=== PATIENT | male | born 1965 | race Caucasian/White ===

== ENCOUNTER 2019-01-03 23:09 | Emergency (ER) | payer BC ==
[~2019-01-03] VITALS: Ht 175.3 cm; Wt 76.7 kg
[2019-01-03 23:15] VITALS: BP 145/89
[2019-01-03 23:34] LABS: BILIRUBIN,URINE NEGATIVE (NEG); CLARITY,URINE CLEAR; COLOR,URINE YELLOW; NITRITE,URINE NEGATIVE (NEG); PROTEIN,URINE NEGATIVE (NEG-TRACE); UROBILINOGEN,URINE 0.2 mg/dL (0.2 mg/dL)
[2019-01-03 23:40] LABS: BACTERIA,URINE MANY /HPF (0-FEW); WBC,URINE TNTC /HPF (0-4)
[2019-01-03 23:41] LABS: HYALINE CASTS, URINE FEW /HPF; SQUAMOUS EPITHELIAL CELL,UR OCC /LPF
[2019-01-03] MEDS ORDERED: CEPH-264 PO (23:58)
[2019-01-03] MEDS ORDERED: PHEN-318 PO (23:58)
--- NOTE | 2019-01-03 23:58 | PHYS DOC ---
Past Medical History Past Medical History: No Pertinent History Past Surgical History: No Surgical History Additional Information: Nonsmoker Alcohol Use: Occasionally Drug Use: Marijuana Adult General Chief Complaint Chief Complaint: URINARY FREQUENCY HPI HPI 53-year-old male presents with report of 6 day history of increased urinary frequency and urgency. Reports worse tonight. Denies fever or chills. Denies rash. Denies concern for STD exposure. Review of Systems Review of Systems Constitutional: Denies fever or chills Eyes: Denies redness or eye pain HENT: Denies nasal congestion or sore throat Respiratory: Denies cough or shortness of breath Cardiovascular: Denies chest pain or palpitations GI: Denies abdominal pain, nausea, or vomiting : Reports increased urinary frequency and urgency Musculoskeletal: Denies back pain or joint pain Integument: Denies rash or skin lesions Neurologic: Denies headache, focal weakness or sensory changes Complete systems were reviewed and found to be within normal limits, except as documented in this note. Current Medications Current Medications Current Medications Medications (Trade) Dose Ordered Sig/Irma Start Time Stop Time Status Last Admin Dose Admin Cephalexin HCl (Keflex) 500 mg 1X ONCE 01/04/19 00:00 01/04/19 00:01 DC 01/04/19 00:07 500 MG Phenazopyridine HCl (Pyridium) 200 mg 1X ONCE 01/04/19 00:00 01/04/19 00:01 DC 01/04/19 00:08 200 MG Allergies Allergies Allergies Coded Allergies Type Severity Reaction Last Updated Verified No Known Drug Allergies 04/23/13 No Physical Exam Physical Exam Constitutional: Well developed, well nourished, no acute distress, non-toxic appearance HENT: Normocephalic, atraumatic, oropharynx moist Eyes: Conjunctiva normal, no discharge Neck: Normal range of motion, no tenderness, supple Cardiovascular: Heart rate normal, regular rhythm Lungs & Thorax: Bilateral breath sounds clear to auscultation, no wheezing Abdomen: Soft, no tenderness Skin: Warm, dry, no erythema, no rash Back: No tenderness, no CVA tenderness Extremities: No tenderness, ROM intact, no edema Neurologic: Alert and oriented X 3, no focal deficits noted Psychologic: Affect normal, judgement normal Current Patient Data Vital Signs Vital Signs Date Time Temp Pulse Resp B/P (MAP) Pulse Ox O2 Delivery O2 Flow Rate FiO2 01/03/19 23:15 98.4 88 16 145/89 (107) 99 Room Air 98.4 Lab Values Laboratory Tests Test 01/03/19 23:18 Urine Collection Type Unknown Urine Color Yellow Urine Clarity Clear Urine pH 7.0 Urine Specific [place] 1.020 Urine Protein Negative mg/dL (NEG-TRACE) Urine Glucose (UA) Negative mg/dL (NEG) Urine Ketones (Stick) Negative mg/dL (NEG) Urine Blood Moderate (NEG) Urine Nitrite Negative (NEG) Urine Bilirubin Negative (NEG) Urine Urobilinogen Dipstick 0.2 mg/dL (0.2 mg/dL) Urine Leukocyte Esterase Moderate (NEG) Urine RBC 11-20 /HPF (0-2) Urine WBC Tntc /HPF (0-4) Urine Squamous Epithelial Cells Occ /LPF Urine Bacteria Many /HPF (0-FEW) Urine Hyaline Casts Few /HPF Urine Mucus Mod /LPF EKG EKG [] Radiology/Procedures Radiology/Procedures [] Course & Med Decision Making Course & Med Decision Making Pertinent Lab studies reviewed. (See chart for details) Patient presents with history of present illness and physical exam concerning for urine tract infection. UA confirmed signs of infection. Symptomatic treatment provided- Pyridium. Empiric antibiotic initiated. Patient stable for discharge with outpatient follow-up with PCP/Urology. Urology referral provided. Discussed findings and plan with patient, who acknowledges understanding and agreement. Dragon Disclaimer Dragon Disclaimer This electronic medical record was generated, in whole or in part, using a voice recognition dictation system. Departure Departure Impression: Primary Impression: UTI (urinary tract infection) Disposition: HOME, SELF-CARE Condition: STABLE Referrals: NO PCP (PCP) MIKEY ZAMBRANO MD Patient Instructions: Urinary Tract Infection, [id number] Scripts Cephalexin (KEFLEX) 500 Mg Capsule 500 MG PO TID for 7 Days, #21 CAP Prov: TONI COREAS DO 01/03/19 Phenazopyridine Hcl (PYRIDIUM) 200 Mg Tablet 200 MG PO TID PRN for DYSURIA for 2 Days, #5 TAB Prov: TONI COREAS DO 01/03/19 Problem Qualifiers Primary Impression: UTI (urinary tract infection) Urinary tract infection type: acute cystitis Hematuria presence: with hematuria Qualified Codes: N30.01 - Acute cystitis with hematuria TONI COREAS DO Jan 03, 2019 23:58
[2019-01-04] MEDS ORDERED: CEPHALEXIN 250 MG CAPSULE. PO ONE
[2019-01-04] MEDS ORDERED: PHENAZOPYRIDINE 200 MG TABLET. PO ONE
== END 2019-01-04 00:12 | disposition home or self-care (01) ==
LOC: ER 23:09
DX: N30.01 Acute cystitis with hematuria (principal)
CPT/HCPCS: 81001; 87086; 99284

== ENCOUNTER 2019-02-23 11:33 | Emergency (ER) | payer BC ==
[~2019-02-23] VITALS: Ht 175.3 cm; Wt 76.7 kg
[~2019-02-23 11:33] MED LIST: CEPH-264 PO; PHEN-318 PO
[2019-02-23 11:55] VITALS: BP 138/76
[2019-02-23] MEDS ORDERED: KETOROLAC TROMETHAMINE 10 MG TABLET PO STA (11:57)
--- NOTE | 2019-02-23 12:04 | PHYS DOC ---
Past Medical History Past Medical History: No Pertinent History Past Surgical History: No Surgical History Alcohol Use: Occasionally Drug Use: Marijuana Adult General Chief Complaint Chief Complaint: UPPER EXTREMITY INJURY HPI HPI Patient is a 54 year old male who presents with left shoulder pain after unloading boxes from a truck last Friday. The patient states his left shoulder is been hurting since that time. He rates the pain as 7 out of 10 severity sharp. Review of Systems Review of Systems Constitutional: Denies fever or chills [] Eyes: Denies change in visual acuity, redness, or eye pain [] HENT: Denies nasal congestion or sore throat [] Respiratory: Denies cough or shortness of breath [] Cardiovascular: No additional information not addressed in HPI [] GI: Denies abdominal pain, nausea, vomiting, bloody stools or diarrhea [] : Denies dysuria or hematuria [] Musculoskeletal: Reports L shoulder pain Integument: Denies rash or skin lesions [] Neurologic: Denies headache, focal weakness or sensory changes [] Endocrine: Denies polyuria or polydipsia [] Complete systems were reviewed and found to be within normal limits, except as documented in this note. Current Medications Current Medications Current Medications Medications (Trade) Dose Ordered Sig/Irma Start Time Stop Time Status Last Admin Dose Admin Ketorolac Tromethamine (Toradol) 10 mg 1X STAT 02/23/19 11:57 02/23/19 12:00 DC 02/23/19 12:05 10 MG Allergies Allergies Allergies Coded Allergies Type Severity Reaction Last Updated Verified No Known Drug Allergies 04/23/13 No Physical Exam Physical Exam Constitutional: Well developed, well nourished, no acute distress, non-toxic appearance. [] HENT: Normocephalic, atraumatic, bilateral external ears normal, oropharynx moist, no oral exudates, nose normal. [] Eyes: PERRLA, EOMI, conjunctiva normal, no discharge. [] Neck: Normal range of motion, no tenderness, supple, no stridor. [] Skin: Warm, dry, no erythema, no rash. [] Back: No tenderness, no CVA tenderness. [] Extremities: Tenderness to L shoulder, - drop arm test, reduced range of motion, unable to lift arm above shoulder. Neurologic: Alert and oriented X 3, normal motor function, normal sensory function, no focal deficits noted. [] Psychologic: Affect normal, judgement normal, mood normal. [] Current Patient Data Vital Signs Vital Signs Date Time Temp Pulse Resp B/P (MAP) Pulse Ox O2 Delivery O2 Flow Rate FiO2 02/23/19 11:55 98.0 104 18 138/76 (96) 97 Room Air 98.0 EKG EKG [] Radiology/Procedures Radiology/Procedures [][facility] [address] [place] [address] IMAGING REPORT Signed PATIENT: JODI ENGEL ACCOUNT: [id number] : 1965 LOCATION: ER AGE: 54 SEX: M EXAM STATUS: REG ER ORD. PHYSICIAN: TONI LANE APRN REASON: L shoulder pain after lifting heavy boxes PROCEDURE: SHOULDER 2+V LEFT Study: SHOULDER 2+V LEFT Indication: Left shoulder pain after lifting heavy boxes. Comparison: None. Findings: No acute fracture or traumatic malalignment at the shoulder girdle. No significant degenerative changes. Ovoid focus of mineralization within the mid left lung most compatible with a granuloma. Impression: No acute fracture or malalignment at the left shoulder. Electronically signed by: RACHAEL KEATING MD (02/23/2019 12:43 PM) [facility] DICTATED and SIGNED BY: RACHAEL KEATING MD DATE: 02/23/19 1243 Course & Med Decision Making Course & Med Decision Making Pertinent Labs and Imaging studies reviewed. (See chart for details) Will get x-ray and give Toradol. X-ray is unremarkable. Will place in shoulder sling and have follow up for more testing. Dragon Disclaimer Dragon Disclaimer This electronic medical record was generated, in whole or in part, using a voice recognition dictation system. Departure Departure Impression: Primary Impression: Shoulder pain, left Disposition: 01 HOME, SELF-CARE Condition: STABLE Referrals: NO PCP (PCP) Patient Instructions: Shoulder Pain Additional Instructions: Thank you for visiting [facility]. We appreciate you trusting us with your care. If any additional problems come up don't hesitate to return to visit us. Please follow up with your primary care provider so they can plan additional care if needed and know about the problem that you had. If symptoms worsen come back to the Emergency Department. Any concerning symptoms that start such as chest pain, shortness of air, weakness or numbness on one side of the body, running high fevers or any other concerning symptoms return to the ER. Please fill your medications at any pharmacy and follow the prescription instructions. Please follow up with your PCP for further testing. Scripts Naproxen (NAPROXEN) 500 Mg Tablet.dr 1 TAB PO BID PRN for PAIN for 14 Days, #28 TAB Prov: TONI LANE APRN 02/23/19 Problem Qualifiers Primary Impression: Shoulder pain, left Chronicity: acute Qualified Codes: M25.512 - Pain in left shoulder TONI LANE APRN Feb 23, 2019 12:04
--- NOTE | 2019-02-23 12:45 | RAD ---
Study: SHOULDER 2+V LEFT Indication: Left shoulder pain after lifting heavy boxes. Comparison: None. Findings: No acute fracture or traumatic malalignment at the shoulder girdle. No significant degenerative changes. Ovoid focus of mineralization within the mid left lung most compatible with a granuloma. Impression: No acute fracture or malalignment at the left shoulder. Electronically signed by: RACHAEL KEATING MD (02/23/2019 12:43 PM) [facility]
[2019-02-23] MEDS ORDERED: NAPR500T8 PO (12:55)
== END 2019-02-23 13:06 | disposition home or self-care (01) ==
LOC: ER 11:33
DX: M25.512 Pain in left shoulder (principal); X50.9XXA Other and unspecified overexertion or strenuous movements or postures, initial encounter; Y93.89 Activity, other specified; Y92.89 Other specified places as the place of occurrence of the external cause; Y99.8 Other external cause status
CPT/HCPCS: 73030; 99284

== ENCOUNTER 2019-05-26 16:52 | Emergency (ER) | payer SELFPAY ==
[~2019-05-26] VITALS: Ht 175.3 cm; Wt 80.0 kg
[~2019-05-26 16:52] MED LIST changes: +NAPR500T8 PO
[2019-05-26] MEDS ORDERED: fentaNYL PF VIAL 100 MCG/2 ML VIAL IV ONE ×2 (17:15→19:00)
[2019-05-26] MEDS ORDERED: IV NORMAL SALINE 1000ML BAG 1,000 ML IV ONE (17:15)
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
[2019-05-26 17:37] LABS: BASO # 0.1 x10^3/uL (0.0-0.2); BASO % 1 % (0-3); EOS # 0.3 x10^3/uL (0.0-0.7); EOS % 5 % (0-3); HEMATOCRIT 40.3 % (39.0-53.0); HEMOGLOBIN 13.9 g/dL (13.0-17.5); LYMPH # 1.8 x10^3/uL (1.0-4.8); LYMPH % 26 % (24-48); MEAN CORPUSCULAR HEMOGLOBIN 31 pg (25-35); MEAN CORPUSCULAR HGB CONC 35 g/dL (31-37); MEAN CORPUSCULAR VOLUME 91 fL (79-100); MONO # 0.6 x10^3/uL (0.0-1.1); MONO % 8 % (0-9); NEUT # 4.1 x10^3/uL (1.8-7.7); NEUT % 60 % (31-73); PLATELET COUNT 210 x10^3/uL (140-400); RED BLOOD COUNT 4.44 x10^6/uL (4.30-5.70); RED CELL DISTRIBUTION WIDTH 13.8 % (11.5-14.5); WHITE BLOOD COUNT 6.9 x10^3/uL (4.0-11.0)
[2019-05-26 17:50] LABS: CREATININE 1.1 mg/dL (0.7-1.3); GFR 69.5; POTASSIUM 3.7 mmol/L (3.5-5.1)
[2019-05-26 17:55] LABS: ALBUMIN 3.5 g/dL (3.4-5.0); ALBUMIN/GLOBULIN RATIO 1.2 (1.0-1.7); TOTAL BILIRUBIN 0.5 mg/dL (0.2-1.0); TOTAL PROTEIN 6.5 g/dL (6.4-8.2)
[2019-05-26] MEDS ORDERED: IOHEXOL 300 MG/ML 100ML VIAL. IV ONE (18:15)
[2019-05-26] MEDS ORDERED: CONTRAST GIVEN. MC PRN (18:15)
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
[2019-05-26] MEDS ORDERED: ORPH100T PO (19:17)
[2019-05-26] MEDS ORDERED: IBUP-1027 PO (19:17)
[2019-05-26] MEDS ORDERED: DIPHTH,PERTUSS(ACELL),TET TOX 0.5 ML DISP.SYRIN. VAX IM ONE (19:30)
[2019-05-26] MEDS ORDERED: ORPHENADRINE CITRATE 60 MG/2 ML VIAL. IV ONE (19:30)
[2019-05-26 19:49] LABS: BILIRUBIN,URINE NEGATIVE (NEG); CLARITY,URINE CLOUDY; COLOR,URINE YELLOW; NITRITE,URINE NEGATIVE (NEG); PROTEIN,URINE NEGATIVE (NEG-TRACE); UROBILINOGEN,URINE 0.2 mg/dL (0.2 mg/dL)
[2019-05-26 19:56] VITALS: BP 128/78
[2019-05-26 20:01] LABS: BACTERIA,URINE 0 /HPF (0-FEW); HYALINE CASTS, URINE FEW /HPF; WBC,URINE OCC /HPF (0-4)
[2019-05-26] MEDS ORDERED: METH4TAB2 PO (20:30)
[2019-05-26] MEDS ORDERED: HYDR-3164 PO (20:30)
--- NOTE | 2019-05-27 05:16 | EKG ---
[facility] [address] [place] [address] Test Date: 2019-05-26 Test Time: 17:32:08 Pat Name: JODI ENGEL Department: Room: Gender: M [employer]: : 1965 Requested By: TONI LANE Order Number: [id number] Reading MD: Measurements Intervals [place] Rate: 72 P: 28 DE: 128 QRS: 45 QRSD: 86 T: 24 QT: 374 QTc: 415 Interpretive Statements SINUS RHYTHM NORMAL ECG No previous ECG available for comparison
== END 2019-05-26 20:39 | disposition home or self-care (01) ==
LOC: ER 16:52
DX: M54.2 Cervicalgia (principal); M25.552 Pain in left hip; R10.9 Unspecified abdominal pain; G89.11 Acute pain due to trauma; F12.90 Cannabis use, unspecified, uncomplicated; V89.2XXA Person injured in unspecified motor-vehicle accident, traffic, initial encounter; Y93.89 Activity, other specified; Y92.413 State road as the place of occurrence of the external cause; Y99.8 Other external cause status
CPT/HCPCS: 36415; 70450; 71260; 72125; 73502; 74177; 80053; 81001; 84484; 85025; 85610; 85730; 90471; 90715; 93005; 96374; 96375; 96376; 99285; J2360; J3010; J7030; Q9967

== ENCOUNTER → 2020-08-15 | Outpatient (CLI) | payer MEDICAID ==
[~2020-08-15] MED LIST changes: +HYDR-3164 PO; +IBUP-1027 PO; +METH4TAB2 PO; +ORPH100T PO
--- NOTE | 2020-08-15 09:21 | KCIC ---
EXAM: Lower extremity arterial Doppler sonogram with ankle-brachial indices (MELITA). HISTORY: Spinal stenosis. Left lower extremity pain. Atherosclerosis. Peripheral vascular disease. TECHNIQUE: Doppler sonographic evaluation of the lower extremities was performed and pressure reading s were assessed. FINDINGS: Right brachial pressure: 113 mmHg Left brachial pressure: 04/09/2017 mmHg Right ankle pressure (dorsalis pedis artery): 135 mmHg Right ankle pressure (posterior tibial artery): 134 mmHg Right MELITA: 1.1 Left ankle pressure (dorsalis pedis artery): 139 mmHg Left ankle pressure (posterior tibial artery): 135 mmHg Left MELITA: 1.2 There is a borderline elevated peak systolic velocity within the left common femoral artery, measurin g 152 cm/s. There are normal peak systolic velocities within the remainder of the left lower cavity a rteries. There is minimal atherosclerotic plaque within the visualized left lower extremity arteries. IMPRESSION: 1. Normal bilateral ankle-brachial indices. 2. Borderline elevated peak systolic velocity within the left common femoral artery, suggesting mild stenosis. No severe stenosis or arterial occlusion is seen. Electronically signed by: Dora Gaffney MD (08/15/2020 9:18 AM) [id number]
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
== END ==
LOC: KCIC US 08:12
PROVIDERS: ATTEND Family Medicine
DX: M47.817 Spondylosis without myelopathy or radiculopathy, lumbosacral region (principal); M48.062 Spinal stenosis, lumbar region with neurogenic claudication
CPT/HCPCS: 72148; 93922; 93926

== ENCOUNTER → 2021-02-28 | Outpatient (CLI) | payer MEDICAID ==
--- NOTE | 2021-03-01 13:12 | SLEEP ---
DATE OF STUDY: 02/28/2021 HOME SLEEP STUDY ATTENDING PHYSICIAN: Cecil Spencer MD The patient is 56 years old who weighs 172 pounds with a BMI of 25.4. The patient's [place] score was 13. The patient underwent home sleep study performed by [facility]. Total recording time was 547 minutes. During the night study, the patient had 15 obstructive apneas, 26 central apneas, 70 mixed apneas and 20 hypopneas. The patient's AHI was 25.5 per hour. Nocturnal oximetry study revealed an average oxygen saturation of 95% with lowest of 82%. Only 0.5 minutes were spent with oxygen saturation less than 90%. Mean heart rate 54 beats per minute. IMPRESSION: 1. Moderate obstructive sleep apnea at an apnea-hypopnea index of 25.5 per hour. 2. No clinically significant nocturnal hypoxia. RECOMMENDATIONS: 1. The patient would benefit from treatment of sleep apnea with CPAP. This can be done as an in-lab versus home auto-PAP. 2. Once the patient is optimally treated with CPAP, then follow up in 4-6 weeks to assess compliance and to document clinical improvement. 3. Avoid [employer] depressants. 4. Cautioned regarding driving until symptoms of sleep apnea resolve with CPAP. ELISA DR: Black TID: [id number] CC: Idalia SPENCER MD
== END ==
LOC: RT 10:57
PROVIDERS: ATTEND Family Medicine
DX: G47.33 Obstructive sleep apnea (adult) (pediatric) (principal); R40.0 Somnolence
CPT/HCPCS: G0399

== ENCOUNTER → 2021-03-22 | Outpatient (CLI) | payer MEDICAID ==
--- NOTE | 2021-03-26 20:29 | SLEEP ---
DATE OF STUDY: 03/22/2021 SLEEP STUDY ATTENDING PHYSICIAN: Luis Felipe Acevedo MD The patient is 56 years old, who weighs 164 pounds with a BMI of 24.4. The patient had a previous home sleep study and was found to have moderate obstructive sleep apnea at an AHI of 25 per hour. The patient returned for CPAP titration study performed at [facility]. During the night study, the patient spent 430 minutes in bed and slept for 219 minutes with a sleep efficiency of 68%. Sleep latency was 2 minutes with a REM latency of 108 minutes. Sleep architecture showed normal stage 1 sleep, increased stage 2 sleep, absent slow wave and reduced REM sleep. The patient was started on CPAP at 5 cm water and titrated up to 7 cm water. The patient had an anxiety attack towards the end of the night and the test was stopped at patient request. However, the patient did reasonably well while on 5 cm as well as 7 cm of CPAP. At 7 cm of CPAP, the patient slept for 92 minutes. The patient had supine sleep but no REM sleep. The patient's AHI was reduced to 0 per hour and oxygen saturations remained above 94%. EKG monitoring revealed an average heart rate of 53 beats per minute. No sustained arrhythmias observed. No significant periodic limb movements seen. IMPRESSION: 1. Moderate obstructive sleep apnea diagnosed by previous home sleep study. 2. No significant periodic limb movements. RECOMMENDATIONS: 1. Even though the patient could not finish CPAP titration study towards the end of the night, the patient did well at 7 cm of CPAP. This pressure should be used on a nightly basis. 2. Follow up in 4-6 weeks to assess compliance and to document clinical improvement. 3. Avoid [employer] depressants. 4. Cautioned regarding driving until symptoms of sleep apnea resolve with the use of CPAP. HALI/ERENDIRA/MIREYA DR: Black TID: [id number] CC: Luis Felipe Acevedo MD [facility]
== END ==
LOC: RT 18:56
PROVIDERS: ATTEND Family Medicine
DX: G47.33 Obstructive sleep apnea (adult) (pediatric) (principal)
CPT/HCPCS: 95811